=== PATIENT | female | born 1985 | race Caucasian/White ===

== ENCOUNTER 2018-12-27 16:03 | Emergency (ER) | payer BC ==
--- NOTE | 2018-12-27 17:06 | EDM.PDOC ---
ED HPI GENERAL MEDICAL PROBLEM - General Chief Complaint: Laceration Stated Complaint: laceration Time Seen by Provider: 12/27/18 16:10 Source of Information: Reports: Patient History Limitations: Reports: No Limitations - History of Present Illness INITIAL COMMENTS - FREE TEXT/NARRATIVE: According to patient she was playing with her children. The ball fell in the skinner water and she ran into the grass and got a cut over the left foot 2n d toe. The wound was bleeding, but presently in the emergency room, she has not pain. Pt is not sure of her last tetanus. Onset: Today Onset Date: 12/27/18 Onset Time: 15:00 Location: Reports: Lower Extremity, Left Severity: Mild Associated Symptoms: Denies: Confusion, Chest Pain, Cough, Diaphoresis, Fever/ Chills, Headaches, Malaise, Rash, Seizure Left Foot Pain Score (Numeric/FACES): 0 - Related Data Allergies Allergy/AdvReac Type Severity Reaction Status Date / Time cephalexin [From Keflex] Allergy Severe Airway Verified 02/08/18 08:54 Tightness clindamycin Allergy Severe Other Verified 02/08/18 08:54 Penicillins Allergy Severe Airway Verified 02/08/18 08:54 Tightness Home Meds: Home Meds NK [No Known Home Meds] 12/27/18 [History] Past Medical History - Past Health History Medical/Surgical History: Denies Medical/Surgical History [employer] WORK[employer] History: Reports: Social & Family History - Family History Family Medical History: Noncontributory - Caffeine Use Caffeine Use: Reports: Coffee, Soda ED ROS GENERAL - Review of Systems Review Of Systems: See Below Constitutional: Denies: Fever HEENT: Denies: Rhinitis, Throat Pain Respiratory: Denies: Cough, Sputum Cardiovascular: Denies: Chest Pain, Lightheadedness GI/Abdominal: Denies: Abdominal Pain, Nausea, Vomiting : Denies: Dysuria, Frequency Musculoskeletal: Denies: Joint Pain, Joint Swelling Skin: Reports: Wound. Denies: Bruising, Pruritis, Rash ED EXAM, SKIN/RASH Exam: See Below Exam Limited By: No Limitations General Appearance: Alert Eye Exam: Bilateral Eye: EOMI, PERRL Ears: Normal External Exam, Normal Canal, Hearing Grossly Normal, Normal TMs Nose: Normal Inspection, Normal Mucosa, No Blood Throat/Mouth: Normal Inspection, Normal Lips, Normal Teeth, Normal Gums, Normal Oropharynx, Normal Voice, No Airway Compromise Head: Atraumatic, Normocephalic Neck: Normal Inspection, Supple, Non-Tender, Full Range of Motion Respiratory/Chest: No Respiratory Distress, Lungs Clear, Normal Breath Sounds, No Accessory Muscle Use, Chest Non-Tender Cardiovascular: Normal Peripheral Pulses, Regular Rate, Rhythm, No Edema, No Gallop, No JVD, No Murmur, No Rub Extremities: Normal Inspection, Normal Range of Motion, Non-Tender, No Pedal Edema, Normal Capillary Refill Skin: Warm, Other (left 2nd toe: there is a 2.3 cm long clean cut gaping laceration over the medial aspect of the toe. there is very minimal bleeding. minimal tenderness s to touch.) ED SKIN PROCEDURES - Laceration/Wound Repair Left Toe - Second Appearance: Superficial, Linear Distal NVT: Neuro & Vascular Intact Anesthetic Type: Local Local Anesthesia - Lidocaine (Xylocaine): 1% Plain Local Anesthetic Volume: 1cc Skin Prep: Providone-Iodine (Betadine) Lac/Wound length In cm: 2.3 Suture Size: 5-0 # of Sutures: 5 Suture Type: Other (ethilon) Sterile Dressing Applied: Provider Tetanus Status Addressed: Yes Complications: No Course - Vital Signs Text/Narrative:: Pt has a linear laceration of the left 2nd toe. The wound was closed under aseptic precautions.Pt did receive tetanus today. Wound care discussed with patient in detail. Infection precautions advised. Suture removal in 1 wk. Followup in clinic for suture removal. Last Recorded V/S: Last Vital Signs Temp 98 F 12/27/18 16:40 Pulse 82 12/27/18 16:40 Resp 16 12/27/18 16:40 BP 126/82 12/27/18 16:40 Pulse Ox 100 12/27/18 16:40 Departure - Departure Time of Disposition: 16:30 Disposition: Home, Self-Care 01 Condition: Good Clinical Impression: Toe laceration - Discharge Information *PRESCRIPTION DRUG MONITORING PROGRAM REVIEWED*: Not Applicable *COPY OF PRESCRIPTION DRUG MONITORING REPORT IN PATIENT AVANI: Not Applicable Instructions: Laceration Care, Adult, VIS, Diphtheria, Tetanus, and Pertussis ( DTaP) - [facility] [place] (08/22/2006) Referrals: PCP,None [Primary Care Provider] - Forms: ED Department Discharge Care Plan Goals: Keep wound dry x 2 days. Can shower after 2 days. Replace dressing with bandage. then dress daily and observe laceration for signs of infection. Cover sutures with antibiotic ointment prior to bandage. Wear sandals or slipper with sock on foot. Make an appointment at clinic to have sutures removed in 7 days. [phone]). Return earlier if any signs of infection develop. - Problem List & Annotations (1) Toe laceration SNOMED Code(s): 043858632 Code(s): S91.119A - LACERATION W/O FB OF UNSP TOE W/O DAMAGE TO NAIL, INIT Status: Acute Current Visit: Yes - Problem List Review Problem List Initiated/Reviewed/Updated: Yes - Assessment/Plan Assessment:: Left 2nd toe laceration Plan: Pt has a linear laceration of the left 2nd toe. The wound was closed under aseptic precautions.Pt did receive tetanus today. Wound care discussed with patient in detail. Infection precautions advised. Suture removal in 1 wk. Followup in clinic for suture removal.
[2018-12-27] MEDS ORDERED: Diphtheria,Pertussis(Acell),Tetanus Ped/PF 0.5 ML Vial IM ONE (17:14)
[2018-12-27] MEDS ORDERED: Diphtheria,Pertussis(Acell),Tetanus Vaccine 0.5 ML SDV inactive IM ONE (17:15)
[2018-12-29] MEDS ORDERED: Bacitracin Oint 1 GM U/D Packet TOP ONE (04:58)
[2018-12-29] MEDS ORDERED: Lidocaine 1% PF 2 ML SDV INJECT ONE (04:58)
== END 2018-12-27 17:45 | disposition home or self-care (01) ==
LOC: LB.ED 16:03
DX: S91.115A Laceration without foreign body of left lesser toe(s) without damage to nail, initial encounter (principal); Z88.1 Allergy status to other antibiotic agents; Z88.0 Allergy status to penicillin; W26.8XXA Contact with other sharp object(s), not elsewhere classified, initial encounter; Z23 Encounter for immunization
CPT/HCPCS: 12001; 90471; 90715; 99283-25; J2001